=== PATIENT | male | born 1960 | race Caucasian/White ===

== ENCOUNTER 2016-06-03 15:32 | Outpatient (CLI) | payer OTHER | END 2016-06-03 15:33 | disposition home or self-care (01) | DX: S86.012A Strain of left Achilles tendon, initial encounter (principal); S86.112A Strain of other muscle(s) and tendon(s) of posterior muscle group at lower leg level, left leg, initial encounter ==

== ENCOUNTER 2021-10-16 08:54 | Day surgery (SDC) | payer OTHER ==
[~2021-10-16 08:54] MED LIST: CYCLOPENTOLATE 1% OPHTH DROPS 2 ML ONE; KETOROLAC 0.45% OPHTH DROPS ONE; PHENYLEPHRINE 2.5% OPHTH 2 ML DROPS ONE; PROPARACAINE 0.5% OPHTH DROPS 15 ML ONE
[2021-10-16] MEDS ORDERED: LACTATED RINGERS 1,000 ML IV ONE (08:58)
--- NOTE | 2021-10-16 10:37 | ANESTHESIA ---
Pre-Anesthesia VS, & Labs - Diagnosis R cataract - Procedure R PhacoIOL Vital Signs: Temp Pulse Resp BP Pulse Ox 37 C 52 L 16 151/86 H 100 10/16/21 09:03 10/16/21 09:03 10/16/21 09:03 10/16/21 09:03 10/16/21 09:03 Height: 6 ft 2 in Weight (kg): 110.9 kg Body Mass Index: 31.4 BMI Classification: Obese - NPO >8 hours Home Medications and Allergies Home Medications: Ambulatory Orders Acetaminophen [Tylenol] 1 tab PO PRN PRN 10/16/21 Magnesium 1 tab PO DAILY 10/16/21 Meloxicam [Mobic] 1 tab PO DAILY 10/16/21 Multivitamin 1 tab PO DAILY 10/16/21 Omeprazole 1 cap PO DAILY 10/16/21 Acetaminophen [Tylenol] 1 tab PO PRN PRN 10/16/21 Magnesium 1 tab PO DAILY 10/16/21 Meloxicam [Mobic] 1 tab PO DAILY 10/16/21 Multivitamin 1 tab PO DAILY 10/16/21 Omeprazole 1 cap PO DAILY 10/16/21 Allergies/Adverse Reactions: Allergies Allergy/AdvReac Type Severity Reaction Status Date / Time No Known Drug Allergies Allergy Verified 10/16/21 09:21 Anes History & Medical History - Anesthetic History Anesthesia Complications: reports: No previous complications Family history of Anesthesia Complications: Denies Family history of Malignant Hyperthermia: Denies - Medical History Cardiovascular: reports: Other (cardiomyopathy hx, pt states now resolved. does not see vice chair) Pulmonary: reports: Sleep apnea, CPAP use Gastrointestinal: reports: None Urinary: reports: None Musculoskeletal: reports: None Endocrine/Autoimmune: reports: None Skin: reports: None - Surgical History Eyes Ears Nose Throat (EENT): reports: Tonsil/Adenoidectomy Orthopedic: reports: Other Exam General: Alert, Oriented x3, Cooperative Dental: WNL Mouth Openin Fingerbreadth Neck Mobility: Normal Mallampati classification: II Thyromental Distance: 4-6 cm Respiratory: Lungs clear Cardiovascular: Regular rate Plan Anesthesia Type: MAC Consent for Procedure(s) Verified and Reviewed: Yes Code Status: Attempt Resuscitation ASA classification: 2-Mild systemic disease Is this case an emergency?: No
[2021-10-16] MEDS ORDERED: EPINEPHrine 1 MG/ML AMP IR ONE (10:40)
[2021-10-16] MEDS ORDERED: PROPARACAINE 0.5% OPHTH DROPS 15 ML EACHEYE ONE (10:40)
[2021-10-16] MEDS ORDERED: TRIAMCIN/MOXIFLOX OPHTHALMIC 0.6 ML VIAL IO ONE (10:40)
[2021-10-16] MEDS ORDERED: BSS/LIDOCAINE/EPINEPHRINE 1 ML SYRINGE IO ONE (10:40)
[2021-10-16] MEDS ORDERED: BRIMONIDINE 0.2% OPHTH DROPS 5 ML OPTH ONE (10:40)
[2021-10-16] MEDS ORDERED: TIMOLOL 0.5% OPHTH DROPS OPTH ONE (10:40)
[2021-10-16] MEDS ORDERED: VANCOMYCIN OPHTH (TOPICAL) 10 MG/ML SYRINGE TOP ONE (10:41)
[2021-10-16] MEDS ORDERED: MIDAZOLAM 2 MG/2 ML VIAL ONE (10:46)
[2021-10-16 10:56] VITALS: BP 123/80
[2021-10-16] MEDS ORDERED: ACETYLCHOLINE 20 MG/2 ML KIT IO ONE (11:00)
[2021-10-16] MEDS ORDERED: LACTATED RINGERS 900 ML IV ONE (11:01)
--- NOTE | 2021-10-16 11:04 | OPERATIVE REPORT ---
Operative Report - Other Other Information/Narrative: Date of Surgery: 10/16/21 Preop Dx: Visually significant cataract right eye. This was the first cataract surgery. Postop Dx: Same Procedure: Phacoemulsification with posterior chamber toric intraocular lens implant right eye Surgeon: Dr. Agustin Jones Anesthesia: Monitored anesthesia care Complications: None Operative Indications: This is a 60-year-old M with progressive vision loss in the right eye due to 1+ nuclear sclerotic and 3+ cortical cataract. Best corrected visual acuity was 20/25 with glare to 20/60 vision in the right eye. Indications for surgery were: - Difficulty seeing words on a computer screen - Difficulty driving in low light or at night - Difficulty driving at night because of headlights from other vehicles The patient was consented at length concerning the risks and benefits of william ract surgery after which the patient expressed a desire to proceed with surgery. Operative Procedure: The patients cornea was marked in the pre-surgical area to indicate the axis for the toric intraocular lens. The patient was taken into OR#3 and placed under monitored anesthesia care. A surgical time-out was conducted confirming correct patient, correct procedure, and correct surgical site. The patient was given topical anesthesia and then prepped and draped in the usual sterile fashion. The eye was entered at the 6 and 3 oclock positions. Intracameral Shugarcaine was injected into the anterior chamber followed by a dispersive viscoelastic. A continuous-tear curvilinear capsulorhexis was performed. The nucleus was hydrodissected and phacoemulsified. The cortex was evacuated using automated infusion and aspiration. A cohesive viscoelastic was injected into the capsular bag and a 12.0 diopter toric intraocular lens was inserted into the bag and rotated to axis . Infusion and aspiration were used to evacuate the viscoelastic materials from the eye and the IOL was verified to remain on axis. The wounds were hydrated and the eye inflated to physiologic pressure using balanced salt solution. Approximately 0.25ml of a mixture of triamcinolone and moxifloxacin was injected trans- sclerally into the vitreous in the inferotemporal quadrant using a 30 gauge cannula. An additional 0.55ml of a mixture of triamcinolone and moxifloxacin was injected subconjunctivally in the superior quadrant for infection and inflammation prophylaxis. Wound integrity was checked with Weck-Aruna sponges and the IOL axis was once again verified to be on the correct axis. The patient was taken from the operating room in good condition and given post-op instructions.
--- NOTE | 2021-10-16 14:43 | ANESTHESIA POST OP EVALUATION ---
Anesthesia Post Eval - Post Anesthesia Eval Vitals: Last Vital Signs Temp 36.8 C 10/16/21 10:53 Pulse 62 10/16/21 10:53 Resp 16 10/16/21 10:53 BP 123/80 10/16/21 10:53 Pulse Ox 99 10/16/21 10:53 CV Function Including HR & BP: Stable Pain Control: Satisfactory Nausea & Vomiting: Negative Mental Status: Baseline Respiratory Status: Airway Patent Hydration Status: Satisfactory Anesthesia Complications: None
== END 2021-10-16 08:55 | disposition home or self-care (01) ==
LOC: SDS 08:54
PROVIDERS: ATTEND Ophthalmology
DX: H25.011 Cortical age-related cataract, right eye (principal); G47.33 Obstructive sleep apnea (adult) (pediatric); E66.9 Obesity, unspecified; Z68.31 Body mass index [BMI] 31.0-31.9, adult; Z72.0 Tobacco use
CPT/HCPCS: 66984; A9270; J3490; J7120; V2632; V2787